=== PATIENT | male | born 1955 | race Caucasian/White ===

== ENCOUNTER 2019-01-16 06:45 | Day surgery (SDC) | payer OTHER ==
[2019-01-15 12:13] LABS: HEMATOCRIT 50.9 % (42.0-54.0); HEMOGLOBIN 17.3 g/dL (13.5-17.5); MCH 31.3 pg (26.0-34.0); MEAN PLATELET VOLUME 9.7 fL (7.4-10.4); RBC 5.53 10x6/uL (4.20-6.10); WBC 6.3 10x3/uL (4.8-10.8)
[~2019-01-16] VITALS: Ht 170.2 cm; Wt 73.5 kg
[~2019-01-16 06:45] MED LIST: CELEBREX200 MG PO; CLARINEX5 MG PO; FLOMAX0.4 MG PO; FLUTICASONE PRO16 GM NASAL; LIPITOR10 MG PO; SINGULAIR10 MG PO
[2019-01-16 07:49] VITALS: BP 123/68; Ht 170.2 cm; Wt 73.5 kg
--- NOTE | 2019-01-16 11:02 | OP ---
PATIENT NAME: NILSA AQUINO MEDICAL RECORD: [id number] :51 LOCATION:.[facility] ADMISSION DATE: SURGEON: SENTHIL CULLEN MD DATE OF OPERATION: 01/16/2019 SURGEON: Senthil Cullen MD. ANESTHESIA: TIVA by Puma Steen CRNA. DIAGNOSES: Obstructive BPH. PSA 2.6. JERO shows a 60-gram prostate. IPSS is 26 and quality of life score is 5.6 on Flomax and finasteride. PROCEDURES: UroLift times 6 units deployed, 5 held. FINDINGS: Obstructive lateral lobes with the left being greater than the right in size, no bladder tumors. BLOOD LOSS: Minimal. CLINICAL HISTORY: This is a 63-year-old male, who has obstructive BPH symptoms. He is on testosterone supplementation for a number of years. His PSA is 2.6. He has been on Flomax since 2013 and he started finasteride about 3 months ago. He still has urinary frequency every 2 hours during the day time and he has nocturia times 2-3. He has a slow urinary flow and the symptoms have become worse as time goes on. He has side effects from the tamsulosin including diminished ejaculation and an effect on his short-term memory. FAMILY HISTORY: Positive for BPH in his father. He comes today to have the UroLift procedure done. He is not allergic to any medications. He was given Ancef blockmason to the OR. DESCRIPTION OF PROCEDURE: The patient was given IV sedation. He was then placed into lithotomy position and prepped and draped. The UroLift scope was introduced. Findings are as outlined above. At 1.5 cm distal to the bladder neck at the anterolateral sulcus area, we placed 1 implant on each side. Then, at the level of the verumontanum, at the anterolateral sulcus, we placed another unit on each side. The unit on the right side hit bone and failed to attach properly. Another unit had to be fired into the right verumontanum level. Looking in with the obturator, there was still an obstruction in the mid prostatic urethra. A unit was placed on the left mid prostate level near the anterolateral sulcus. This opened up a nice anterior urethral channel all the way through the prostate. Because of the multiple units that had been fired, the patient had some gross hematuria. I decided to insert a 16-Spanish Bell catheter to allow the hematuria to cease before we pulled the Bell catheter out. The patient will be going home with the Bell catheter and he will see me in the office next week to have the catheter removed. TRANSINT:[id number] Voice Confirmation ID: [id number] DOCUMENT ID: [id number] OPERATIVE REPORT [id number] NILSA AQUINO, SENTHIL Garg MD at 1102 CC: [id number] DICTATION DATE: 01/16/19 1012 SAND TECHNICIAN: 01/16/19 1057 [facility] [address] [place] [address]
--- NOTE | 2019-01-16 11:20 | NUR ---
1115 INSTRUCTIONS GIVEN AND RX FOR PAIN GIVEN REQUESTED
--- NOTE | 2019-01-16 11:38 | NUR ---
SECOND BAG OF IV LUIDS INFUSING W/O ON POLE, URINE STILL DARK.
--- NOTE | 2019-01-16 14:51 | NUR ---
PT RECIEVED 3 LITERS OF IV FL[address]. DR CULLEN AWARE OR COLOR OF URINE. NOTIFIED PT IF UNABLE TO URINATE OR IF NO URINE IS FLOWING OUT OF CATHETER AND HE HAS A LOT OF PAIN TO GO TO THE ER. 300ML OUT OF CASTANEDA 1200 IV REMOVED
== END 2019-01-16 13:30 | disposition home or self-care (01) ==
LOC: D.OPS 06:45 → D.PAN 07:30 → D.OPS 09:00 → D.PAN 09:30 → D.OPS 09:40
PROVIDERS: Anesthesiology; ATTEND Urology
DX: N40.1 Benign prostatic hyperplasia with lower urinary tract symptoms (principal); N13.8 Other obstructive and reflux uropathy

== ENCOUNTER → 2019-03-30 11:06 | Outpatient (CLI) | payer OTHER ==
[2019-01-16 07:49] VITALS: BMI 25.4
[2019-04-01 16:08] LABS: TESTOSTERONE - FREE 21.6 pg/mL (6.6-18.1); TESTOSTERONE - SERUM 955 ng/dL (264-916)
== END | disposition home or self-care (01) ==
LOC: D.LAB 11:06
PROVIDERS: ATTEND Urology
DX: E29.1 Testicular hypofunction (principal)